=== PATIENT | female | born 1945 | race Caucasian/White ===

== ENCOUNTER 2016-06-10 10:05 | Inpatient (IN) | payer MEDICARE, OTHER ==
[~2016-06-10] VITALS: Ht 165.1 cm; Wt 54.4 kg
--- NOTE | 2016-06-10 10:14 | NUR ---
PT BIB RA FROM HOME FOR LOWER BACK PAIN, "I HAVE A PINCHED NERVE". BLACK STOOL "HAS BEEN TAKING ALEVE WITHOUT FOOD. PLACED ON MONITOR. VSS. AWAITING MD ORDER
[2016-06-10] MEDS ORDERED: HYDROCODONE/APAP 5/325MG 1 EACH TABLET ONE (10:55)
[2016-06-10] MEDS ORDERED: CYCLOBENZAPRINE 10 MG TABLET ONE (10:55)
[2016-06-10] MEDS ORDERED: CYCLOBENZAPRINE 10 MG TABLET PO ONE (11:00)
[2016-06-10] MEDS ORDERED: HYDROCODONE/APAP 5/325MG 1 EACH TABLET PO ONE (11:00)
--- NOTE | 2016-06-10 11:02 | NUR ---
PT TAKEN TO CT
--- NOTE | 2016-06-10 12:24 | NUR ---
CALLED NURSING WHISKEY FILTERER FOR MS BED PER DR CANTU.
[2016-06-10 12:31] LABS: BASOPHILS # (AUTO) 0.1 /CMM (0.0-0.2); BASOPHILS % (AUTO) 1.3 % (0.0-2.0); EOSINOPHILS # (AUTO) 0.1 /CMM (0.0-0.7); EOSINOPHILS % (AUTO) 0.8 % (0.0-6.0); HEMATOCRIT 37 % (33-45); HEMOGLOBIN 12.4 g/dL (11.5-14.8); LYMPHOCYTES # (AUTO) 0.6 /CMM (0.8-4.8); LYMPHOCYTES % (AUTO) 7.9 % (20.0-44.0); MEAN CORPUSCULAR HEMOGLOBIN 37 PG (26.0-33.0); MEAN CORPUSCULAR HGB CONC 34 g/dl (31.0-36.0); MEAN CORPUSCULAR VOLUME 109 fL (82-100); MONOCYTES # (AUTO) 0.7 /CMM (0.1-1.30); MONOCYTES % (AUTO) 9.3 % (2.0-12.0); NEUTROPHILS # (AUTO) 6.4 /CMM (1.8-8.9); NEUTROPHILS % (AUTO) 80.7 % (43.0-81.0); PLATELET COUNT (AUTO) 275 /CMM (150-450); RDW COEFFICIENT OF VARIATION 14.2 (11.5-15.0); RED BLOOD CELL COUNT(AUTO) 3.39 MIL/uL (4.0-5.2); WHITE BLOOD COUNT (AUTO) 7.9 K/uL (4.3-11.0)
--- NOTE | 2016-06-10 12:31 | NUR ---
PAGED GRAIN MILLER HELPER PANEL.
[2016-06-10 12:40] LABS: CREATININE 0.9 mg/dL (0.6-1.3); POTASSIUM 3.5 mmol/L (3.5-5.1)
[2016-06-10] MEDS ORDERED: MAGNESIUM HYDROXIDE 30 ML UDC PO PRN (13:00)
[2016-06-10] MEDS ORDERED: MAG HYDROX/AL HYDROX/SIMETH 30 ML UDC PO PRN (13:00)
[2016-06-10] MEDS ORDERED: ACETAMINOPHEN 325 MG TABLET PO PRN (13:00)
[2016-06-10] MEDS ORDERED: HYDROCODONE/APAP 5/325MG 1 EACH TABLET PO PRN (13:00)
[2016-06-10] MEDS ORDERED: Z GUARD REMEDY 2 OZ OINT TP PRN (13:00)
[2016-06-10] MEDS ORDERED: ONDANSETRON HCL/PF 4 MG/2 ML VIAL IVP PRN (13:00)
[2016-06-10] MEDS ORDERED: MORPHINE SULFATE INJ 2 MG/ML DISP.SYRIN IV PRN (13:00)
[2016-06-10 13:11] LABS: LYMPHOCYTES % (MANUAL) 7 % (16-48); MONOCYTES % (MANUAL) 5 % (0-11.0); NEUTROPHILS % (MANUAL) 88 (42-76); PLATELET ESTIMATE ADEQUATE
--- NOTE | 2016-06-10 13:12 | NUR ---
REPORT CALLED TO MARCELA PEREIRA FOR ADMISSION. NAD NOTED. ALL NEEDS ATTENDED TO.
--- NOTE | 2016-06-10 13:25 | NUR ---
PT TRANSPORTED TO [facility] [place] IN STABLE CONDITION VIA STRETCHER
[2016-06-10 13:30] VITALS: BP 130/69
--- NOTE | 2016-06-10 13:30 | NUR ---
MS FINANCIAL ADMINISTRATIVE ASSISTANT 70 YEARS OLD FEMALE ADMITTED FOR INTRACTABLE BACK PAIN. PATIENT IS A/O X4, AMBULATORY WITH ASSIST. IV IN RIGHT AC G18 PATENT AND INTACT, FLUSHES WELL. V/S TAKEN AND RECORDED, AFEBRILE. PATIENT RECEIVED NORCO 5/325 I TAB PO PRN AT 1104 IN THE ER PRIOR TRANSPORT PER REPORT. MADE COMFORTABLE IN BED. PLACE CALL LIGHT WITHIN REACH. WILL CONN TO MONITOR.
--- NOTE | 2016-06-10 14:00 | NUR ---
SKIN INTACT. PATIENT IS SEEN BY DR. FATIMA TODAY, MD SPOKE TO THE PATIENT.
--- NOTE | 2016-06-10 14:52 | NUR ---
PATIENT IS SEEN BY DR. WALLACE TODAY, PATIENT WILL BE NPO EXCEPT MEDS FOR THE PROCEDURE-LUMBAR EPIDURAL STEROID INJECTION. SPOKE TO THE PATIENT.
[2016-06-10] MEDS: ACETAMINOPHEN 325 MG TABLET PO SCH ×2 (15:13→21:00)
[2016-06-10 16:00] VITALS: BP 118/67
--- NOTE | 2016-06-10 19:10 | NUR ---
MS RN CLOSING NOTES PATIENT IN BED, A/O X4. NOT IN DISTRESS. ON PAIN MANAGEMENT ORDERED. PER PATIENT LONG SHE'S NOT MOVING TOO FAST AND SHE'S LYING ON HER SIDE SHE DONT FEEL PAIN. REMINDED PATIENT TO CALL NURSE IF SHE NEEDS HELP WITH MOVING AND ASSISTANCE. APPEARS COMFORTABLE IN BED, NO C/O PAIN OR ANY DISCOMFORT AT THIS TIME. WILL BE NPO EXCEPT MIDNIGHT FOR THE PROCEDURE TOMORROW . CONSENT SIGNED AND PLACE IN THE CHART. WILL ENDORSE TO PRINTED CIRCUIT BOARD ASSEMBLY REPAIRER RN FOR CONTINUITY OF CARE.
[2016-06-10] MEDS: MORPHINE SULFATE INJ 2 MG/ML DISP.SYRIN IV PRN (19:48)
[2016-06-10 20:00] VITALS: BP 122/63
--- NOTE | 2016-06-10 20:00 | NUR ---
RECEIVED PATIENT IN BED, ALERT AND ORIENTED X4, CALM WITH EPISODES OF ANXIETY SECONDARY TO BACK PAIN. LUNG SOUNDS ARE CLEAR, ON ROOM AIR, 02 SAT 98%, COMPLAINING OF BACK PAIN OF 9/10 AND NAUSEA WITHOUT VOMITING. WILL ADMINISTER MORPHINE AND ZOFRAN. PATIENT UNABLE TO WALK, ABLE TO TRANSFER FROM BED TO BEDSIDE COMMODE ONLY WITH ASSISTANCE. EXPLAINED TO PATIENT NPO AFTER MIDNIGHT, PATIENT VERBALIZE UNDERSTANDING. KEPT SAFE AND COMFORTABLE, CALL LIGHT WITHIN REACH.
[2016-06-10] MEDS ORDERED: GABAPENTIN 300 MG CAPSULE PO SCH (22:00)
[2016-06-11] VITALS (9 sets, daily range): BP systolic 98–122; BP diastolic 55–68
[2016-06-11] MEDS: ACETAMINOPHEN 325 MG TABLET PO SCH ×4 (03:00→20:43)
--- NOTE | 2016-06-11 06:40 | NUR ---
PATIENT RESTING COMFORTABLY IN BED, ALERT AND AWAKE, NO DISTRESS, NO SOB, NO ADVERSE CHANGE OF CONDITION DURING SHIFT. NEEDS ATTENDED, CALL LIGHT WITHIN REACH.
[2016-06-11] MEDS: PANTOPRAZOLE 40 MG TABLET.DR PO SCH (07:30)
[2016-06-11] MEDS: HYDROCODONE/APAP 5/325MG 1 EACH TABLET PO PRN (07:37)
[2016-06-11 07:41] LABS: CALCIUM, SERUM 8.5 mg/dL (8.5-10.1); CREATININE 0.9 mg/dL (0.6-1.3); MAGNESIUM 1.3 mg/dL (1.8-2.4); PHOSPHORUS 3.5 mg/dL (2.5-4.9); POTASSIUM 3.3 mmol/L (3.5-5.1)
--- NOTE | 2016-06-11 08:01 | NUR ---
MS RN OPENING NOTES RECEIVED PT. FROM MACHINE FEATHEREDGER AND REDUCER NURSE IN STABLE CONDITION. PT. SLEEPING IN BED. NO DISTRESS OR PAIN NOTED. IV IN RIGHT AC INTACT AND PATENT. NPO STATUS MAINTAINED. BED IN LOW LOCKED POSITION, SIDE RAILS UP X2, CALL LIGHT WITHIN REACH. WILL CONTINUE TO MONITOR.
[2016-06-11 08:35] LABS: BASOPHILS % (AUTO) 0.6 % (0.0-2.0); EOSINOPHILS # (AUTO) 0.1 /CMM (0.0-0.7); EOSINOPHILS % (AUTO) 1.7 % (0.0-6.0); HEMATOCRIT 33 % (33-45); HEMOGLOBIN 11.2 g/dL (11.5-14.8); LYMPHOCYTES % (AUTO) 16.2 % (20.0-44.0); MEAN CORPUSCULAR HEMOGLOBIN 37 PG (26.0-33.0); MEAN CORPUSCULAR HGB CONC 34 g/dl (31.0-36.0); MEAN CORPUSCULAR VOLUME 108 fL (82-100); MONOCYTES # (AUTO) 0.6 /CMM (0.1-1.30); MONOCYTES % (AUTO) 10.1 % (2.0-12.0); NEUTROPHILS # (AUTO) 4.5 /CMM (1.8-8.9); NEUTROPHILS % (AUTO) 71.4 % (43.0-81.0); PLATELET COUNT (AUTO) 303 /CMM (150-450); RDW COEFFICIENT OF VARIATION 14.6 (11.5-15.0); RED BLOOD CELL COUNT(AUTO) 3.07 MIL/uL (4.0-5.2); WHITE BLOOD COUNT (AUTO) 6.3 K/uL (4.3-11.0)
[2016-06-11] MEDS: MORPHINE SULFATE INJ 2 MG/ML DISP.SYRIN IV PRN (09:07)
[2016-06-11] MEDS ORDERED: POTASSIUM CHLORIDE 20 MEQ TAB.PRT.SR PO SCH (11:00)
--- NOTE | 2016-06-11 12:10 | NUR ---
PT. TAKEN TO EPIDURAL PROCEDURE BY OR NURSES
[2016-06-11] MEDS ORDERED: IOHEXOL 240MG/ML 50 ML IV ONE (12:16)
[2016-06-11] MEDS ORDERED: DEXAMETHASONE SOD PHOSPHATE 10 MG/ML VIAL ONE (12:18)
[2016-06-11] MEDS ORDERED: MIDAZOLAM HCL 2 MG/2ML VIAL ONE (12:23)
[2016-06-11] MEDS ORDERED: FENTANYL PF 100MCG/2ML AMPUL ONE (12:23)
--- NOTE | 2016-06-11 13:15 | NUR ---
RN NOTES PATIENT BACK FROM PROCEDURE NOTED IN STABLE CONDITION DENIES ANY PAIN OR DISCOMFORT VSS WILL CONTINUE TO MONITOR
[2016-06-11] MEDS ORDERED: ANESTHESIA TRAY IN PYXIS 1 EA TRAY MC ONE (13:28)
[2016-06-11] MEDS ORDERED: KETOROLAC TROMETHAMINE INJ 30 MG/ML VIAL IM PRN (13:30)
[2016-06-11] MEDS ORDERED: IV SET PRIMARY PUMP SET 1 EA INFUS.SET MC ONE (13:50)
[2016-06-11] MEDS ORDERED: IV NS 0.9% 250 ML IV ONE (13:50)
[2016-06-11] MEDS ORDERED: SECONDARY IV SET 1 EA INFUS.SET MC ONE (13:50)
[2016-06-11] MEDS: Magnesium 1GM/D5W 100ML PREMIX 100 ML IV SCH ×4 (14:12→20:41)
[2016-06-11] MEDS: GABAPENTIN 300 MG CAPSULE PO SCH (16:56)
[2016-06-11] MEDS: KETOROLAC TROMETHAMINE INJ 30 MG/ML VIAL IV PRN (16:57)
--- NOTE | 2016-06-11 19:44 | NUR ---
MS RN CLOSING NOTES PT. IN STABLE CONDITION SLEEPING IN BED. NO DISTRESS OR PAIN NOTED AT THIS TIME. IV IN RIGHT HAND 22G INTACT AND PATENT, NO REDNESS OR INFILTRATION. BED IN LOW LOCKED POSITION, SIDE RAILS UP X2, CALL LIGHT WITHIN REACH. WILL ENDORSE TO SKIN CARE SPECIALIST NURSE FOR BASILIO.
--- NOTE | 2016-06-11 19:54 | NUR ---
RECEIVED PATIENT IN BED, ALERT AND ORIENTED X4, CALM, NO SOB, NO RESPIRATORY DISTRESS, TOLERATING ROOM AIR. S/P EPIDURAL INJECTION AT NOON, PATIENT STILL COMPLAINING OF 8/10 PAIN TO LOWER BACK ON MOVEMENT. PATIENT IS ANXIOUS ABOUT THE EFFECTIVITY OF EPIDURAL INJECTION. REMINDED PATIENT TO CALL FOR HELP WHEN USING THE BEDSIDE COMMODE. KEPT SAFE AND COMFORTABLE, CALL LIGHT WITHIN REACH.
[2016-06-11] MEDS: ZOLPIDEM TARTRATE 5 MG TABLET PO PRN (23:22)
--- NOTE | 2016-06-11 23:56 | NUR ---
PATIENT REQUESTED PERIPHERAL LINE TO RIGHT HAND BE REMOVED. PER PATIENT "THIS IV LINE IS VERY UNCOMFORTABLE." EXPLAINED TO PATIENT IF MORPHINE IS NEEDED, NEW IV LINE WILL BE INSERTED. Addendum: 06/12/16 at 0730 by LEONARDO STARKS RN MADE AWARE, NO NEW ORDER.
[2016-06-12 02:03] VITALS: BP 122/68
[2016-06-12] MEDS: ACETAMINOPHEN 325 MG TABLET PO SCH ×4 (02:59→20:11)
[2016-06-12] MEDS: HYDROCODONE/APAP 5/325MG 1 EACH TABLET PO PRN (04:04)
--- NOTE | 2016-06-12 06:52 | NUR ---
PATIENT IS AWAKE AND ALERT, NO RESPIRATORY DISTRESS, COMPLAINING OF 5/10 PAIN TO BACK. GIVEN NORCO 5/325 MG PO, EXPLAINED TO PATIENT, NEED TO START AN IV LINE, PATIENT REFUSED TO START A NEW IV LINE. UNABLE TO AMBULATE, TRANSFERS TO BED TO [facility] WITH ASSISTANCE. PROVIDE PAIN MEDICATION DURING SHIFT. KEPT SAFE, CALL LIGHT WITHIN REACH
[2016-06-12] MEDS: PANTOPRAZOLE 40 MG TABLET.DR PO SCH ×2 (07:30→11:44)
--- NOTE | 2016-06-12 07:39 | NUR ---
MS RN OPENING NOTES RECEIVED PT. FROM INSECTICIDE SUPERVISOR NURSE IN STABLE CONDITION. NO IV ACCESS PER PT'S REQUEST. PT. EDUCATED ON THE IMPORTANCE OF IV ACCESS BY INSECTICIDE SUPERVISOR NURSE. WILL REINFORCE TEACHING. NO DISTRESS NOTED AT THIS TIME. BED IN LOW LOCKED POSITION, SIDE RAILS UP X2, CALL LIGHT WITHIN REACH. WILL CONTINUE TO MONITOR.
[2016-06-12 08:00] VITALS: BP 118/80
[2016-06-12 08:10] LABS: MAGNESIUM 2.4 mg/dL (1.8-2.4); POTASSIUM 4.4 mmol/L (3.5-5.1)
[2016-06-12] MEDS: GABAPENTIN 300 MG CAPSULE PO SCH ×3 (08:19→16:55)
--- NOTE | 2016-06-12 08:32 | NUR ---
MS RN NOTES PT. REFUSED PANTOPRAZOLE AND TYLENOL. MEDIATION EDUCATION WAS REINFORCED.
--- NOTE | 2016-06-12 09:41 | NUR ---
Social service consult was requested by charge nurse Yusra. Patient is a 70 year old female that was brought into the hospital due to back pain. Patient was alert and oriented x4. She stated that she lives alone at [address] [place] [address]. 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 She refused to provide information regarding her monthly income but stated that she is able to take care of her own needs. She refused placement at this time and stated that she is interested in going home once she is ready to be discharged from the hospital. Patient stated that she has friends that she visits with and has support from. She is requesting transportation back to her home once she is ready and SW handed taxi voucher to charge nurse Meng. Patient is not requesting any social service referrals and based on assessment, no social service referrals are needed at this time. SW will re-assess if necessary.
[2016-06-12] MEDS ORDERED: DEXAMETHASONE SOD PHOSPHATE 10 MG/ML VIAL IV ONE (11:30)
[2016-06-12] MEDS ORDERED: KETOROLAC TROMETHAMINE INJ 30 MG/ML VIAL IV ONE (11:30)
[2016-06-12 16:00] VITALS: BP 153/90
[2016-06-12] MEDS: KETOROLAC TROMETHAMINE INJ 30 MG/ML VIAL IV PRN (16:55)
--- NOTE | 2016-06-12 17:50 | NUR ---
PT REFUSED 1800 DOSE OF TORADOL PRN DOSE WAS ALREADY GIVEN. WILL CONTINUE TO TAKE ORDERED.
[2016-06-12] MEDS: DEXAMETHASONE SOD PHOSPHATE 10 MG/ML VIAL IV SCH ×2 (17:55→23:31)
[2016-06-12] MEDS ORDERED: KETOROLAC TROMETHAMINE INJ 30 MG/ML VIAL IM SCH (18:00)
--- NOTE | 2016-06-12 18:15 | NUR ---
MS RN CLOSING NOTES PT. IN STABLE CONDITION RESTING IN BED. NO SIGNS OF DISTRESS OR PAIN NOTED AT THIS TIME. BED IN LOW LOCKED POSITION, SIDE RAILS UP X2, CALL LIGHT WITHIN REACH. IV ON L LOWER ARM 22 G INTACT AND PATENT. NO REDNESS OR INFILTRATION NOTED. ALL MD ORDERS AND PT. NEEDS CARRIED OUT THROUGHOUT SHIFT. WILL ENDORSE TO NIGHT NURSE FOR BASILIO
--- NOTE | 2016-06-12 19:47 | NUR ---
RN MS - INITIAL NOTES PATIENT IN BED CURRENTLY AWAKE, A/O X4. NO S/S OF SOB NOTED AT THIS TIME. PATIENT STILL COMPLAINS OF INTRACTABLE BACK PAIN 09/23. BED IN LOW POSITION AND LOCKED. SIDERAILS X2 UP. CALL LIGHT IS WITHIN REACH. NO SIGNIFICANT CHANGES NOTED AT THIS TIME. WILL CONTINUE TO MONITOR PATIENT.
[2016-06-12 20:00] VITALS: BP 126/72
[2016-06-12] MEDS: ZOLPIDEM TARTRATE 5 MG TABLET PO PRN (22:17)
[2016-06-12] MEDS: KETOROLAC TROMETHAMINE INJ 30 MG/ML VIAL IV SCH (23:32)
[2016-06-13] MEDS: ACETAMINOPHEN 325 MG TABLET PO SCH ×4 (02:00→20:40)
[2016-06-13] MEDS: MORPHINE SULFATE INJ 2 MG/ML DISP.SYRIN IV PRN (04:16)
[2016-06-13] MEDS ORDERED: KETOROLAC TROMETHAMINE INJ 30 MG/ML VIAL ONE (05:40)
[2016-06-13] MEDS: KETOROLAC TROMETHAMINE INJ 30 MG/ML VIAL IV SCH (05:53)
[2016-06-13] MEDS: DEXAMETHASONE SOD PHOSPHATE 10 MG/ML VIAL IV SCH ×3 (05:53→16:36)
--- NOTE | 2016-06-13 07:41 | NUR ---
RN OPEN NOTES RECEIVED REPORT FROM OTOLARYNGOLOGY REP NURSE. PATIENT IS IN BED AWAKE, ALERT AND ORIENTED TO PERSON, TIME AND PLACE. NO SIGN AND SYMPTOMS OF DISTRESS. IV SITE IS POTENT AND INTACT. BED IS IN LOW POSITION, LOCKED, AND 2 SIDE RAILS ARE UP. WILL CONTINUE TO ASSESS AND MONITOR PATIENT THROUGH OUT MY SHIFT.
[2016-06-13 08:00] VITALS: BP 113/73
[2016-06-13] MEDS: KETOROLAC TROMETHAMINE INJ 30 MG/ML VIAL IV PRN ×2 (08:38→16:46)
[2016-06-13] MEDS: PANTOPRAZOLE 40 MG TABLET.DR PO SCH (08:39)
[2016-06-13] MEDS: GABAPENTIN 300 MG CAPSULE PO SCH ×3 (08:39→16:36)
[2016-06-13 09:53] LABS: CALCIUM, SERUM 8.7 mg/dL (8.5-10.1); CREATININE 1.1 mg/dL (0.6-1.3); POTASSIUM 4.4 mmol/L (3.5-5.1)
[2016-06-13 16:00] VITALS: BP 114/66
--- NOTE | 2016-06-13 16:17 | NUR ---
accepted at [facility] [phone] with approval from [facility]. Spoke with brother Roshni pt aware and agreed with d/c plan of care. Addendum: 06/13/16 at 1617 by MIGUEL BENJAMIN RN Amended: Links added.
[2016-06-13] MEDS ORDERED: GABA300C PO (16:52)
[2016-06-13] MEDS ORDERED: DEXA4TAB PO (16:52)
[2016-06-13] MEDS ORDERED: HYDR-552 PO (16:52)
--- NOTE | 2016-06-13 18:48 | NUR ---
RN CLOSING NOTES PATIENT IS ALERT AND ORIENTED TO NAME, PLACE AND TIME. NO SIGN AND SYMPTOMS OF DISTRESS. BED IN LOW POSITION, LOCKED AND 2 SIDE RAILS ARE UP. IV SITE IS POTENT AND INTACT. PATIENT HAS A FRIEND AT BED SIDE. DISCHARGE ORDER RECEIVED AND CARRIED ON. PATIENT SIGNED ON ALL BELONGING LIST AND DISCHARGED INFORMATION PACKET. PATIENT IS DRESSED UP AND READY TO GO TO [facility] IN THE [facility] AMBULANCE WILL DATASTAGE ARCHITECT PATIENT AT 8PM. REPORT GAVE TO PAZ AT [facility]. WILL ENDORSE TO ELECTRICAL LINESWORKER NURSE.
[2016-06-13] MEDS ORDERED: HYDROCODONE/APAP 5/325MG 1 EACH TABLET PO ONE (18:50)
--- NOTE | 2016-06-13 19:05 | NUR ---
RN NOTE RECEIVED REPORT. PT AAOX4, NO S/S OF ANY DISTRESS AT THIS TIME. PT WILL BE DISCHARGED TO [facility] VIA AMBULANCE, ARRIVING AT 1999. WILL CONT TO MONITOR.
--- NOTE | 2016-06-13 19:51 | NUR ---
RN NOTE SPOKE WITH YVON FROM [facility]. AMBULANCE WILL BE PICKING HER UP IN 30 MINS.
[2016-06-13 20:23] VITALS: BP 135/83
--- NOTE | 2016-06-13 21:20 | NUR ---
MACHINE STOPPAGE FREQUENCY CHECKER NOTE REPORT GIVEN TO AMBULANCE. DISCHARGE INSTRUCTIONS PROVIDED TO PATIENT, PAPERWORK SIGNED, IV D/C'ED, ARMBAND OFF. NO APPARENT DISTRESS AT THIS TIME. PT AAOX4, COOPERATIVE. ALL BELONGINGS SENT WITH PATIENT. WILL BE GOING TO [facility].
== END 2016-06-13 21:00 | DRG 552 ==
LOC: ER 10:08 → MED 13:22
PROVIDERS: ADMIT Family Medicine; ATTEND Family Medicine
PROC: 3E0S33Z Introduction of Anti-inflammatory into Epidural Space, Percutaneous Approach (ICD-10-PCS; principal; 2016-06-11 12:38)
DX: M46.06 Spinal enthesopathy, lumbar region (principal); M47.16 Other spondylosis with myelopathy, lumbar region; M48.06 Spinal stenosis, lumbar region; N28.1 Cyst of kidney, acquired; K57.30 Diverticulosis of large intestine without perforation or abscess without bleeding; I10 Essential (primary) hypertension; M47.26 Other spondylosis with radiculopathy, lumbar region; G89.29 Other chronic pain
CPT/HCPCS: 36415; 71010-TC; 72020-TC; 72131-TC; 80048-TC; 83735-TC; 84100-TC; 85025-TC; 86850-TC; 87081-TC; 97001-TC; 97116-TC; 97530-TC; A4606; A6209; J1100; J1885; J2250; J2270; J2405; J3010; J3475; J7050; Q9966; Z7610

== ENCOUNTER 2016-06-15 20:02 | Inpatient (IN) | payer OTHER ==
[~2016-06-15] VITALS: Ht 165.1 cm; Wt 54.4 kg
[~2016-06-15 20:02] MED LIST: DEXA4TAB PO; GABA300C PO; HYDR-552 PO
--- NOTE | 2016-06-15 20:15 | NUR ---
PT A/OX4 BREATHING EFFORTLESSLY ON ROOM AIR, PT STATES SHE WAS SENT HERE BY AMBULANCE FOR ABNORMAL LABS, PT HAS LOW H&H, PT ON MONITOER, VSS, IV PLACED AND PT IS IN MONITOR, LABS DRAWN, MD MADE AWARE WILL CONTINUE TO MONITOR.
[2016-06-15] MEDS ORDERED: ACET325T53 PO (20:17)
[2016-06-15] MEDS ORDERED: WATER FOR INJECTION,STERILE 10 ML ONE (20:18)
[2016-06-15] MEDS ORDERED: PANTOPRAZOLE 40 MG VIAL ONE (20:18)
[2016-06-15 20:22] LABS: BASOPHILS # (AUTO) 0.2 /CMM (0.0-0.2); BASOPHILS % (AUTO) 1.1 % (0.0-2.0); EOSINOPHILS % (AUTO) 0.1 % (0.0-6.0); HEMATOCRIT 28 % (33-45); HEMOGLOBIN 9.4 g/dL (11.5-14.8); LYMPHOCYTES % (AUTO) 5.8 % (20.0-44.0); MEAN CORPUSCULAR HEMOGLOBIN 37 PG (26.0-33.0); MEAN CORPUSCULAR HGB CONC 34 g/dl (31.0-36.0); MEAN CORPUSCULAR VOLUME 107 fL (82-100); MONOCYTES # (AUTO) 1.2 /CMM (0.1-1.30); MONOCYTES % (AUTO) 7.2 % (2.0-12.0); NEUTROPHILS # (AUTO) 14.5 /CMM (1.8-8.9); NEUTROPHILS % (AUTO) 85.8 % (43.0-81.0); PLATELET COUNT (AUTO) 418 /CMM (150-450); RDW COEFFICIENT OF VARIATION 13.6 (11.5-15.0); RED BLOOD CELL COUNT(AUTO) 2.57 MIL/uL (4.0-5.2); WHITE BLOOD COUNT (AUTO) 16.9 K/uL (4.3-11.0)
[2016-06-15] MEDS ORDERED: PANTOPRAZOLE 40 MG VIAL IV ONE (20:30)
[2016-06-15 20:32] LABS: CALCIUM, SERUM 8.3 mg/dL (8.5-10.1); CREATININE 1.1 mg/dL (0.6-1.3); POTASSIUM 4.2 mmol/L (3.5-5.1)
[2016-06-15 20:35] LABS: INR 0.9 (0.87-1.13); PROTHROMBIN TIME 9.4 SECS (9.5-12.7)
[2016-06-15 20:38] LABS: ALBUMIN 3.2 g/dL (3.4-5.0); BILIRUBIN,DIRECT 0.1 mg/dL (0.0-0.2); BILIRUBIN,TOTAL 0.1 mg/dL (0.2-1.0); TOTAL PROTEIN, SERUM 6.5 g/dL (6.4-8.2)
--- NOTE | 2016-06-15 20:43 | NUR ---
CALLED NURSING SUP. FOR MS BED
--- NOTE | 2016-06-15 20:51 | NUR ---
PT GOING TO [facility] FOR GI BLEED
[2016-06-15] MEDS ORDERED: MAG HYDROX/AL HYDROX/SIMETH 30 ML UDC PO PRN (21:00)
[2016-06-15] MEDS ORDERED: ACETAMINOPHEN 325 MG TABLET PO PRN (21:00)
[2016-06-15] MEDS ORDERED: Z GUARD REMEDY 2 OZ OINT TP PRN (21:00)
[2016-06-15] MEDS ORDERED: MAGNESIUM HYDROXIDE 30 ML UDC PO PRN (21:00)
[2016-06-15] MEDS ORDERED: HYDROCODONE/APAP 5/325MG 1 EACH TABLET PO PRN (21:00)
[2016-06-15 21:05] LABS: BAND % (MANUAL) 3 % (0.0-5.0); LYMPHOCYTES % (MANUAL) 7 % (16-48); MONOCYTES % (MANUAL) 9 % (0-11.0); NEUTROPHILS % (MANUAL) 81 (42-76); PLATELET ESTIMATE ADEQUATE
--- NOTE | 2016-06-15 21:15 | NUR ---
CALLED NURSING SUP. TO UPGRADE ROOM TO TELE
--- NOTE | 2016-06-15 21:29 | NUR ---
PT GOING TO TELE [id number]
[2016-06-15 22:00] VITALS: BP 132/77
[2016-06-15] MEDS ORDERED: ZOLPIDEM TARTRATE 5 MG TABLET ONE (22:22)
[2016-06-15] MEDS ORDERED: MORPHINE SULFATE INJ 2 MG/ML DISP.SYRIN ONE (22:22)
[2016-06-15] MEDS ORDERED: ONDANSETRON HCL/PF 4 MG/2 ML VIAL ONE (22:22)
[2016-06-15] MEDS ORDERED: IV SET PRIMARY PUMP SET 1 EA INFUS.SET MC ONE (22:23)
[2016-06-15] MEDS ORDERED: IV NS 0.9% 1,000 ML ONE (22:23)
[2016-06-15] MEDS: MORPHINE SULFATE INJ 2 MG/ML DISP.SYRIN IV PRN (22:31)
[2016-06-15] MEDS: ONDANSETRON HCL/PF 4 MG/2 ML VIAL IVP PRN (22:31)
[2016-06-15] MEDS: ZOLPIDEM TARTRATE 5 MG TABLET PO PRN (22:31)
[2016-06-15] MEDS: IV NS 0.9% 1,000 ML IV PRN (22:33)
[2016-06-15 22:55] VITALS: BP 132/77
[2016-06-16] VITALS (13 sets, daily range): BP systolic 82–111; BP diastolic 46–69
[2016-06-16 00:42] LABS: APPEARANCE,URINE CLEAR (CLEAR); BILIRUBIN,URINE NEGATIVE (NEGATIVE); BLOOD, URINE NEGATIVE Ery/uL (NEGATIVE); COLOR,URINE YELLOW (YELLOW); KETONES,URINE NEGATIVE (NEGATIVE); LEUKOCYTE ESTERASE ,URINE NEGATIVE (NEGATIVE); NITRITE, URINE NEGATIVE (NEGATIVE); PH,URINE 5.5 (5.0-8.0); PROTEIN,URINE NEGATIVE (NEGATIVE); UGLUCOSE NEGATIVE (NEGATIVE); UROBILINOGEN,URINE 0.2 EU/dL (0.2)
[2016-06-16] MEDS ORDERED: ONDANSETRON HCL/PF 4 MG/2 ML VIAL ONE (04:47)
[2016-06-16] MEDS ORDERED: MORPHINE SULFATE INJ 2 MG/ML DISP.SYRIN ONE (04:47)
[2016-06-16] MEDS: ONDANSETRON HCL/PF 4 MG/2 ML VIAL IVP PRN (04:56)
[2016-06-16] MEDS: MORPHINE SULFATE INJ 2 MG/ML DISP.SYRIN IV PRN ×3 (04:56→21:42)
--- NOTE | 2016-06-16 06:20 | NUR ---
PASTER OPERATOR NOTES AWAKE & RESPONSIVE. NOT IN ANY DISTRESS. NO SOB NOTED. DENIES ANY PAIN OR DISCOMFORT AT THIS TIME. ON TELE SR @ 85 WITH IVF INFUSING WELL. MONITORED ACCORDINGLY. CALL LIGHT WITHIN REACH. BED IN LOWEST POSITION. SR UP X 2 FOR SAFETY. WILL ENDORSE TO NEXT SHIFT.
[2016-06-16 06:41] LABS: BASOPHILS % (AUTO) 0.1 % (0.0-2.0); HEMATOCRIT 22 % (33-45); HEMOGLOBIN 7.4 g/dL (11.5-14.8); LYMPHOCYTES # (AUTO) 1.2 /CMM (0.8-4.8); LYMPHOCYTES % (AUTO) 12.4 % (20.0-44.0); MEAN CORPUSCULAR HEMOGLOBIN 36 PG (26.0-33.0); MEAN CORPUSCULAR HGB CONC 33 g/dl (31.0-36.0); MEAN CORPUSCULAR VOLUME 109 fL (82-100); MONOCYTES # (AUTO) 0.9 /CMM (0.1-1.30); MONOCYTES % (AUTO) 9.8 % (2.0-12.0); NEUTROPHILS # (AUTO) 7.3 /CMM (1.8-8.9); NEUTROPHILS % (AUTO) 77.7 % (43.0-81.0); PLATELET COUNT (AUTO) 308 /CMM (150-450); RDW COEFFICIENT OF VARIATION 13.8 (11.5-15.0); RED BLOOD CELL COUNT(AUTO) 2.06 MIL/uL (4.0-5.2); WHITE BLOOD COUNT (AUTO) 9.4 K/uL (4.3-11.0)
[2016-06-16 07:15] LABS: ALBUMIN 2.5 g/dL (3.4-5.0); BILIRUBIN,TOTAL 0.2 mg/dL (0.2-1.0); CALCIUM, SERUM 8.3 mg/dL (8.5-10.1); MAGNESIUM 1.9 mg/dL (1.8-2.4); PHOSPHORUS 3.2 mg/dL (2.5-4.9); POTASSIUM 4.2 mmol/L (3.5-5.1); TOTAL PROTEIN, SERUM 5.2 g/dL (6.4-8.2)
--- NOTE | 2016-06-16 07:15 | NUR ---
SURGICAL CLINICAL REVIEWER NOTES RECEIVED PATIENT IN BED, AWAKE. A/O X4. NOT IN DISTRESS. ON TELE MONITOR SINUS RHYTHM HR 70, NO SOB NOTED. PATIENT IS ON NPO STATUS ORDERED. IV IN LFA G18 PATENT AND INTACT, ON IV NS AT 75ML/HR. NO C/O PAIN AT THIS TIME. CALL LIGHT WITHIN REACH. WILL CONT TO MONITOR.
[2016-06-16] MEDS: PANTOPRAZOLE 40 MG VIAL IV SCH (08:31)
[2016-06-16] MEDS: GABAPENTIN 300 MG CAPSULE PO SCH ×3 (09:00→17:43)
[2016-06-16 09:30] LABS: BAND % (MANUAL) 2 % (0.0-5.0); BASOPHILS % (MANUAL) 0 % (0.0-2.0); EOSINOPHILS % (MANUAL) 1 % (0-4); LYMPHOCYTES % (MANUAL) 9 % (16-48); MONOCYTES % (MANUAL) 9 % (0-11.0); NEUTROPHILS % (MANUAL) 79 (42-76); PLATELET ESTIMATE ADEQUATE
--- NOTE | 2016-06-16 09:41 | NUR ---
LOW HGB 7.[address] GALAVIZ[address] 2 UNITS OF PRBC TO BE INFUSED. CHARGE NURSE IS AWARE.
[2016-06-16] MEDS ORDERED: BLOOD IV SET 1 EA INFUS.SET MC ONE ×2 (09:46→17:06)
--- NOTE | 2016-06-16 10:02 | NUR ---
OBTAINED CONSENT FOR BLOOD TRANSFUSION FROM THE PATIENT AFTER EXPLAINING RISK, BENEFITS OF THE BLOOD TRANSFUSION, PATIENT VERBALIZED UNDERSTANDING. CONSENT FORM PLACE IN THE CHART.
--- NOTE | 2016-06-16 10:53 | NUR ---
PATIENT IS SEEN BY DR. OLIVIA-GI TODAY. PATIENT TO HAVE EGD AND WILL BE NPO EXCEPT MEDS ON 06/17/16. FULL LIQUIDS 06/16/16 LUNCH, PATIENT MADE AWARE.
[2016-06-16] MEDS ORDERED: IV NS 0.9% 250 ML IV ONE (11:38)
[2016-06-16] MEDS ORDERED: PANTOPRAZOLE 80 MG in IV NS 0.9% 500 ML IV ONE (12:00)
--- NOTE | 2016-06-16 12:11 | NUR ---
FOR EGD IN AM, CONSENT OBTAINED FROM THE PATIENT.
[2016-06-16] MEDS ORDERED: SECONDARY IV SET 1 EA INFUS.SET MC ONE (12:17)
--- NOTE | 2016-06-16 12:54 | NUR ---
PATIENT IN BED, A/O X4. V/S TAKEN AND RECORDED, AFEBRILE. ON ROOM AIR TOLERATING WELL. PRBC FIRST UNIT BAG STARTED, WITNESSED BY ANOTHER RN PRIOR INFUSION. WILL CONT TO MONITOR PATIENT CLOSELY.
[2016-06-16 12:55] LABS: THYROID STIMULATING HORMONE 3.198 uIU/mL (0.358-3.74); URIC ACID 6.5 mg/dL (2.6-7.2)
--- NOTE | 2016-06-16 13:10 | NUR ---
PATIENT IN BED, V/S REMAINS STABLE. NO FEVER, DENIES CHEST PAIN, NO CHILLS, NO SOB NOTED. NO C/O PAIN OR ANY DISCOMFORT. WILL CONT TO MONITOR CLOSELY.
--- NOTE | 2016-06-16 13:45 | NUR ---
PATIENT IN BED, V/S REMAINS STABLE. NO C/O PAIN OR ANY DISCOMFORT. AFEBRILE. DENIES CHEST PAIN. NO CHILLS, BLOOD TRANSFUSION STILL IN PROGRESS. WILL CONT TO MONITOR CLOSELY.
--- NOTE | 2016-06-16 15:48 | NUR ---
POST BLOOD TRANSFUSION FIRST UNIT PRBC WITH NO ADVERSE SIDE EFFECT NOTED. PATIENT APPEARS COMFORTABLE IN BED, DENIES CHEST PAIN. V/S REMAINS STABLE, AFEBRILE. NO C/O DIZZINESS, NO CHILLS. WILL CONT TO MONITOR.
--- NOTE | 2016-06-16 17:17 | NUR ---
V/S TAKEN AND RECORDED. 2ND UNIT OF PRBC INFUSING, WITNESSED BY ANOTHER RN PRIOR INFUSION. WILL CONT TO MONITOR PATIENT CLOSELY.
--- NOTE | 2016-06-16 17:37 | NUR ---
PATIENT IN BED, A/O X4. V/S TAKEN AND RECORDED, AFEBRILE. ON ROOM AIR TOLERATING WELL. PRBC 2ND UNIT BAG STARTED, WITNESSED BY ANOTHER RN PRIOR INFUSION. WILL CONT TO MONITOR PATIENT CLOSELY.
--- NOTE | 2016-06-16 18:15 | NUR ---
PATIENT IN BED, V/S REMAINS STABLE. NO C/O PAIN OR ANY DISCOMFORT. AFEBRILE. DENIES CHEST PAIN. NO CHILLS, BLOOD TRANSFUSION 2ND UNIT PRBC STILL IN PROGRESS. WILL CONT TO MONITOR CLOSELY.
--- NOTE | 2016-06-16 18:45 | NUR ---
MS RN CLOSING NOTES PATIENT IN BED, V/S REMAINS STABLE. BLOOD TRANSFUSION STILL IN PROGRESS WITH NO ADVERSE SYMPTOMS NOTED. PATIENT WILL BE NPO EXCEPT MEDS FOR THE PROCEDURE-EGD IN AM ORDERED. CALL LIGHT WITHIN REACH. WILL ENDORSE TO STUDENT FINANCE ADVISOR RN FOR CONTINUITY OF CARE.
[2016-06-16] MEDS ORDERED: IV SET PRIMARY PUMP SET 1 EA INFUS.SET MC ONE (21:18)
[2016-06-16] MEDS: ZOLPIDEM TARTRATE 5 MG TABLET PO PRN (21:47)
[2016-06-17] MEDS: IV NS 0.9% 1,000 ML IV PRN ×2 (00:52→16:57)
[2016-06-17] MEDS: MORPHINE SULFATE INJ 2 MG/ML DISP.SYRIN IV PRN ×4 (02:12→22:04)
--- NOTE | 2016-06-17 06:31 | NUR ---
MS RN NOTES AWAKE & RESPONSIVE. NOT IN ANY DISTRESS. NO SOB NOTED. DENIES ANY PAIN OR DISCOMFORT AT THIS TIME. WITH IVF INFUSING WELL. MONITORED ACCORDINGLY. CALL LIGHT WITHIN REACH. BED IN LOWEST POSITION. SR UP X 2 FOR SAFETY. WILL ENDORSE TO NEXT SHIFT.
--- NOTE | 2016-06-17 07:10 | NUR ---
MS RN NOTES RECEIVED PATIENT IN BED, A/O X3. ON OXYGEN AT 2L/MIN VIA NC, NO SOB NOTED. NOT IN DISTRESS. PATIENT IS ON NPO STATUS, FOR PROCEDURE-EGD TODAYBY DR. OLIVIA. PATIENT IS AWARE. CALL LIGHT WITHIN REACH. WILL CONT TO MONITOR.
[2016-06-17 08:00] VITALS: BP 95/54
[2016-06-17] MEDS: PANTOPRAZOLE 40 MG VIAL IV SCH (08:22)
[2016-06-17] MEDS: GABAPENTIN 300 MG CAPSULE PO SCH ×3 (08:22→17:01)
[2016-06-17 08:35] VITALS: BP 95/54
--- NOTE | 2016-06-17 09:03 | NUR ---
PATIENT IS SEEN BY DR. GRECIA MUNOZ TODAY, CONTINUE PATIENT ON NPO STATUS UNTIL CLEARED BY GI. PATIENT IS AWARE.
--- NOTE | 2016-06-17 15:37 | NUR ---
PATIENT IS TAKEN TO OR FOR EGD TODAY.
--- NOTE | 2016-06-17 15:38 | NUR ---
POST BLOOD TRANSFUSION YESTERDAY, NO CURRENT LAB OF TODAY 06/17/16, PER DR. PAIGE TO CHECK CBC AFTER EGD TODAY, NOTED AND ACKNOWLEDGED.
[2016-06-17 16:00] VITALS: BP 107/64
[2016-06-17] MEDS ORDERED: ANESTHESIA TRAY IN PYXIS 1 EA TRAY MC ONE (16:18)
--- NOTE | 2016-06-17 16:40 | NUR ---
PATIENT IS BACK TO UNIT-MED SURG, POST EGD PROCEDURE. DR. OLIVIA ORDERED ADVANCED TO GENERAL DIET/REGULAR DIET NOTED AND ACKNOWLEDGED.
[2016-06-17 17:29] LABS: BASOPHILS # (AUTO) 0.1 /CMM (0.0-0.2); BASOPHILS % (AUTO) 1.1 % (0.0-2.0); EOSINOPHILS # (AUTO) 0.1 /CMM (0.0-0.7); EOSINOPHILS % (AUTO) 1.5 % (0.0-6.0); HEMATOCRIT 33 % (33-45); HEMOGLOBIN 10.8 g/dL (11.5-14.8); LYMPHOCYTES # (AUTO) 1.2 /CMM (0.8-4.8); LYMPHOCYTES % (AUTO) 13.8 % (20.0-44.0); MEAN CORPUSCULAR HEMOGLOBIN 33 PG (26.0-33.0); MEAN CORPUSCULAR HGB CONC 33 g/dl (31.0-36.0); MEAN CORPUSCULAR VOLUME 100 fL (82-100); MONOCYTES # (AUTO) 0.8 /CMM (0.1-1.30); NEUTROPHILS # (AUTO) 6.3 /CMM (1.8-8.9); NEUTROPHILS % (AUTO) 74.6 % (43.0-81.0); PLATELET COUNT (AUTO) 169 /CMM (150-450); RDW COEFFICIENT OF VARIATION 19.2 (11.5-15.0); RED BLOOD CELL COUNT(AUTO) 3.26 MIL/uL (4.0-5.2); WHITE BLOOD COUNT (AUTO) 8.5 K/uL (4.3-11.0)
--- NOTE | 2016-06-17 18:03 | NUR ---
MS RN CLOSING NOTES PATIENT IN BED, A/O X4. NOT IN DISTRESS, V/S REMAINS STABLE. NO ACTIVE BLEEDING, REGULAR DIET WAS RESUMED, NO C/O NAUSEA OR VOMITING. IV IN RFA G22 PATENT AND INTACT, IV NS INFUSING AT 75ML/HR. CALL LIGHT WITHIN REACH. LAB IN AM ORDERED. WILL ENDORSE TO SALON DESIGNER RN FOR CONTINUITY OF CARE.
[2016-06-17 18:26] LABS: BAND % (MANUAL) 3 % (0.0-5.0); EOSINOPHILS % (MANUAL) 2 % (0-4); LYMPHOCYTES % (MANUAL) 16 % (16-48); MONOCYTES % (MANUAL) 8 % (0-11.0); NEUTROPHILS % (MANUAL) 71 (42-76); PLATELET ESTIMATE ADEQUATE
[2016-06-17 18:27] LABS: ANISOCYTOSIS 1+
--- NOTE | 2016-06-17 19:30 | NUR ---
MS RN NOTE: PATIENT RESTING IN BED, NO ACUTE DISTRESS NOTED. BREATHING EVEN AND UNLABORED, NO SOB NOTED. IV TO RFA IN PLACE, INFUSING NS AT 75 ML/HR. NO ACTIVE BLEEDING NOTED. BED LOCKED AND IN LOWEST POSITION, CALL LIGHT IN REACH. WILL CONTINUE TO MONITOR.
[2016-06-17 20:20] VITALS: BP 100/60
--- NOTE | 2016-06-17 22:15 | NUR ---
MS RN NOTE: PATIENT COMPLAINS OF BACK PAIN 11/24, MORPHINE 2MG IV GIVEN PER MD ORDER. WILL CONTINUE TO MONITOR.
[2016-06-17] MEDS: ZOLPIDEM TARTRATE 5 MG TABLET PO PRN (22:30)
--- NOTE | 2016-06-17 22:40 | NUR ---
MS RN NOTE: PATIENT REQUESTING FOR MEDICATIONS FOR SLEEP. AMBIEN 5MG ORAL GIVEN PER MD ORDER. WILL CONTINUE TO MONITOR.
[2016-06-18] MEDS: MORPHINE SULFATE INJ 2 MG/ML DISP.SYRIN IV PRN (05:27)
[2016-06-18] MEDS: IV NS 0.9% 1,000 ML IV PRN (05:27)
--- NOTE | 2016-06-18 05:30 | NUR ---
MS RN NOTE: PATIENT COMPLAINS OF BACK PAIN 11/24, MORPHINE 2MG IV GIVEN PER MD ORDER. WILL CONTINUE TO MONITOR.
--- NOTE | 2016-06-18 06:15 | NUR ---
MS RN NOTE: PATIENT RESTING IN BED, NO ACUTE DISTRESS NOTED. BREATHING EVEN AND UNLABORED, NO SOB NOTED. IV TO RFA IN PLACE, INFUSING NS AT 75 ML/HR. BED LOCKED AND IN LOWEST POSITION, CALL LIGHT IN REACH. WILL ENDORSE TO DAY NURSE TO CONTINUE WITH PLAN OF CARE.
[2016-06-18 06:38] LABS: BASOPHILS % (AUTO) 0.1 % (0.0-2.0); EOSINOPHILS # (AUTO) 0.3 /CMM (0.0-0.7); EOSINOPHILS % (AUTO) 3.6 % (0.0-6.0); HEMATOCRIT 29 % (33-45); HEMOGLOBIN 9.9 g/dL (11.5-14.8); MEAN CORPUSCULAR HEMOGLOBIN 34 PG (26.0-33.0); MEAN CORPUSCULAR HGB CONC 34 g/dl (31.0-36.0); MEAN CORPUSCULAR VOLUME 100 fL (82-100); MONOCYTES # (AUTO) 0.7 /CMM (0.1-1.30); MONOCYTES % (AUTO) 9.2 % (2.0-12.0); NEUTROPHILS % (AUTO) 75.1 % (43.0-81.0); PLATELET COUNT (AUTO) 292 /CMM (150-450); RDW COEFFICIENT OF VARIATION 18.8 (11.5-15.0); RED BLOOD CELL COUNT(AUTO) 2.93 MIL/uL (4.0-5.2)
[2016-06-18 06:53] LABS: CALCIUM, SERUM 7.8 mg/dL (8.5-10.1); CREATININE 0.9 mg/dL (0.6-1.3); POTASSIUM 4.2 mmol/L (3.5-5.1)
[2016-06-18 07:26] LABS: MAGNESIUM 1.7 mg/dL (1.8-2.4); PHOSPHORUS 3.8 mg/dL (2.5-4.9)
[2016-06-18] MEDS ORDERED: PANTOPRAZOLE 40 MG TABLET.DR PO SCH (07:30)
--- NOTE | 2016-06-18 07:35 | NUR ---
MS RN NOTE: PATIENT RESTING IN BED, NO ACUTE DISTRESS NOTED. BREATHING EVEN AND UNLABORED, NO SOB NOTED, CONTINUED ON PAIN MANAGEMENT. IV TO RFA IN PLACE, INFUSING NS AT 75 ML/HR. BED LOCKED AND IN LOWEST POSITION, CALL LIGHT IN REACH. WILL ENDORSE TO DAY NURSE TO CONTINUE WITH PLAN OF CARE.
[2016-06-18 08:00] VITALS: BP 99/56
[2016-06-18] MEDS: GABAPENTIN 300 MG CAPSULE PO SCH ×2 (08:26→12:10)
[2016-06-18 09:40] LABS: VIT D, 25-HYDROXY 6.2 ng/mL (30.0-100.0)
[2016-06-18] MEDS ORDERED: PANT40TA2 PO (12:12)
[2016-06-18] MEDS ORDERED: MAGNESIUM OXIDE 400 MG TABLET PO ONE (12:30)
--- NOTE | 2016-06-18 13:31 | NUR ---
RN NOTES PATIENT WITH DISCHARGE ORDERS, WILL CONTINUE TO MONITOR AND ASSIST WITH DISCHARGE PROCESS APPROPRIATE
[2016-06-18 16:01] VITALS: BP 116/63
--- NOTE | 2016-06-18 16:30 | NUR ---
MS RN NOTE: PATIENT SITTING UP IN BED, NO ACUTE DISTRESS NOTED. BREATHING EVEN AND UNLABORED, NO SOB NOTED IN NO APPARENT PAIN OR DISCOMFORT. IV TO RIGHT FOREARM AND ID BAND REMOVED PICTURES OF SKIN TAKEN AND PLACED IN CHART. DISCHARGE INSTRUCTIONS REVIEWED WITH PATIENT WITH NOTED VERBAL UNDERSTANDING, ASSISTED TO LOBBY BY GREASE REMOVER DISCHARGED IN STABLE CONDITION REPORT GIVEN TO SHARI DESIR RN AND EMT FOR CONTINUITY OF CARE
[2016-06-19 02:23] LABS: CARCINOEMBRYONIC AG (CEA) 1.2 ng/mL (0.0-4.7)
[2016-06-19 09:19] LABS: *SPE A/G RATIO 1.4 (0.7-1.7); *SPE ALBUMIN 2.9 g/dL (2.9-4.4); *SPE ALPHA-1-GLOBULIN 0.2 g/dL (0.0-0.4); *SPE ALPHA-2-GLOBULIN 0.5 g/dL (0.4-1.0); *SPE BETA GLOBULIN 0.9 g/dL (0.7-1.3); *SPE M-SPIKE Not Observed g/dL (Not Observed); *SPE PROTEIN TOTAL 4.9 g/dL (6.0-8.5); *SPEGAMMA GLOBULIN 0.4 g/dL (0.4-1.8)
== END 2016-06-18 16:30 | DRG 384 ==
LOC: ER 20:03 → MEDSG2 21:01 → TELE 22:07 → MED 06-16 09:36
PROVIDERS: ADMIT Family Medicine; ATTEND Family Medicine
PROC: 30233N1 Transfusion of Nonautologous Red Blood Cells into Peripheral Vein, Percutaneous Approach (ICD-10-PCS; principal; 2016-06-16)
PROC: 0DB58ZX Excision of Esophagus, Via Natural or Artificial Opening Endoscopic, Diagnostic (ICD-10-PCS; 2016-06-17)
PROC: 0DB68ZX Excision of Stomach, Via Natural or Artificial Opening Endoscopic, Diagnostic (ICD-10-PCS; 2016-06-17)
DX: K25.9 Gastric ulcer, unspecified as acute or chronic, without hemorrhage or perforation (principal); I10 Essential (primary) hypertension; K22.11 Ulcer of esophagus with bleeding; D64.9 Anemia, unspecified; K29.80 Duodenitis without bleeding; K44.9 Diaphragmatic hernia without obstruction or gangrene; K57.90 Diverticulosis of intestine, part unspecified, without perforation or abscess without bleeding; M48.00 Spinal stenosis, site unspecified; D72.829 Elevated white blood cell count, unspecified
CPT/HCPCS: 36415; 71010-TC; 80048-TC; 80053-TC; 80076-TC; 81000-TC; 82306; 82378; 82728-TC; 82746; 83540-TC; 83615-TC; 83690-TC; 83735-TC; 84100-TC; 84155; 84165; 84443-TC; 84550-TC; 85025-TC; 85730-TC; 86850-TC; 86921-TC; 87081-TC; 88305-TC; 88313-TC; 88342; A4606; C9113; J2270; J2405; J2704; J7030; J7040; J7050; P9016-BL; Z7610